=== PATIENT | male | born 1965 | race African-American/Black ===

== ENCOUNTER → 2018-03-29 | Day surgery (SDC) | payer BC ==
[~2018-03-29] MED LIST: SODIUM CHLORIDE LOCK 10 ML ONE; diphenhdrAMINE HCL 50 MG/1 ML VL ONE
[2018-03-29] MEDS: fentaNYL CITRATE 100 MCG/2 ML VL ONE ×2 (11:55→11:58)
[2018-03-29] MEDS: MIDAZOLAM HCL 5 MG/ML-1ML VIAL ONE ×2 (11:55→11:58)
[2018-03-29 12:38] VITALS: BP 111/75
== END | disposition home or self-care (01) ==
LOC: GI 10:02
PROVIDERS: ATTEND Internal Medicine Gastroenterology
DX: Z12.11 Encounter for screening for malignant neoplasm of colon (principal); Z88.5 Allergy status to narcotic agent; Z98.890 Other specified postprocedural states
CPT/HCPCS: 45378; J1200; J2250; J3010; J7030; 99152

== ENCOUNTER → 2018-06-05 | Outpatient (CLI) | payer BC | END | disposition home or self-care (01) | LOC: XYW 08:41 | PROVIDERS: ATTEND Internal Medicine | DX: Z01.818 Encounter for other preprocedural examination (principal) | CPT/HCPCS: 93306 ==

== ENCOUNTER → 2018-08-13 | Day surgery (SDC) | payer BC ==
[2018-08-09 12:22] LABS: Urine Blood Negative /uL (Negative); Urine Specific Gravity 1.031 (1.001-1.035)
[2018-08-09 12:29] LABS: INR 0.96 (0.9-1.15); Partial Thromboplastin Time 27.5 sec (23.78-33.04); Prothrombin Time 10.3 sec (9.27-12.13)
[2018-08-09 12:31] LABS: Basophils # (auto) 0.1 uL; Basophils % (auto) 0.9 % (0.0-2.0); Eosinophils # (auto) 0.1 uL; Eosinophils % (auto) 2.7 % (0.0-7.0); Lymphocytes # (auto) 2.3 uL; Mean Corpuscular Hgb Conc. 31.7 g/dL (32.0-36.0); Monocytes # (auto) 0.5 uL; Monocytes % (auto) 9.2 % (0.0-12.0); Neutrophils # (auto) 2.6 uL; White Blood Cell 5.6 10^3/uL (4.4-10.8)
[2018-08-09 12:32] LABS: Hematocrit 44.5 % (41.0-53.0); Hemoglobin 14.1 g/dL (13.5-17.5); Lymphocytes % (auto) 41.4 % (10.0-50.0); Mean Corpuscular Hemoglobin 22.3 pg (28.0-32.0); Mean Corpuscular Volume 70.2 fL (80.0-100.0); Neutrophils % (auto) 45.8 % (37.0-80.0); Platelet Count (auto) 375 10^3/uL (140-450); Red Blood Cells 6.33 10^6/uL (4.5-5.90)
[2018-08-09 12:40] LABS: Albumin 3.9 g/dL (3.4-5.0); Calcium 8.6 mg/dL (8.5-10.1); Potassium 4.2 mmol/L (3.5-5.1)
[2018-08-09 12:43] LABS: BUN/Creatinine Ratio 15.2; Bilirubin, Total 0.5 mg/dL (0.2-1.0); Total Protein 7.6 g/dL (6.4-8.2)
[~2018-08-13] VITALS: Ht 177.8 cm; Wt 93.0 kg
[~2018-08-13] MED LIST changes: +HYDROmorphone HCL 2 MG/ML VL IV PRN; +LIDOCAINE HCL 2% TOP JELLY 5ML TOP ONE; +METOCLOPRAMIDE HCL 5MG/ml INJ 2ml VIAL ONE; +MIDAZOLAM HCL 1MG/1ML-2 ML VIAL ONE; +MORPHINE SULF(PF) 0.5MG/ML 10ML VIAL ONE; +NALOXONE HCL 0.4 MG/ML VIAL IV PRN; +ONDANSETRON HCL 4 MG/2 ML VIAL IV ONE; +PROPOFOL 10 MG/ML 20 ML IV ONE; -SODIUM CHLORIDE LOCK 10 ML ONE; +ceFAZolin 1GM/50ML 100 ML IV ONE; -diphenhdrAMINE HCL 50 MG/1 ML VL ONE; +fentaNYL CITRATE 100 MCG/2 ML VL ONE
[2018-08-13] MEDS: HYDROmorphone HCL 2 MG/ML VL IV PRN ×2 (12:10→12:12)
[2018-08-13 13:09] VITALS: BP 118/76
== END | disposition home or self-care (01) ==
LOC: SUR 08:48
PROVIDERS: ATTEND Orthopaedic Surgery
DX: S83.281A Other tear of lateral meniscus, current injury, right knee, initial encounter (principal); D16.21 Benign neoplasm of long bones of right lower limb; Z88.8 Allergy status to other drugs, medicaments and biological substances; M19.90 Unspecified osteoarthritis, unspecified site; X58.XXXA Exposure to other specified factors, initial encounter; Y93.89 Activity, other specified; Y92.89 Other specified places as the place of occurrence of the external cause; Y99.8 Other external cause status
CPT/HCPCS: 27355; 27635; 29876; 29881; 36415; 80053; 81003; 85025; 85610; 85730; A6257; J0690; J1170; J2250; J2270; J2704; J2765; J3010